=== PATIENT | female | born 1950 | race Caucasian/White ===

== ENCOUNTER 2023-08-23 11:12 | Outpatient (OUT) | payer OTHER, SELFPAY ==
--- NOTE | 2023-08-23 11:21 | MM_ITS ---
Patient: GISELE HEAD Exam Date: 08/23/2023 : 1950 Gender:F Ordering : DR FOREST SWAN M.D. Admission #: [id number] Family : Order #: [id number] CLICK HERE TO VIEW EXAM RADIOLOGY REPORT PROCEDURE: MM TOMOSYNTHESIS SCREENING BI COMPARISON: MAMMO WILMAR SCREEN, 04/06/2013. MAMMO WILMAR SCREEN, 06/15/2014. INDICATIONS: Screening Calculator Name NCI Breast Cancer Risk Assessment Tool 5 Year Breast Cancer Risk 1.70% Lifetime Breast Cancer Risk 4.50% Personal Breast Cancer No Personal Ovarian Cancer No Treatments None Family Cancers Daughter with melanoma cancer at age 45. LOCATION: [facility] BREAST COMPOSITION: Scattered areas fibroglandular density. FINDINGS: DIAGNOSTIC CATEGORY 1--NEGATIVE. NO CHANGE FROM COMPARISON ASSESSMENT. Scattered benign-appearing calcifications are present. Scattered benign-appearing lymph nodes are present. RIGHT BREAST: No significant suspicious finding. LEFT BREAST: No significant suspicious finding. RECOMMENDATIONS: ROUTINE MAMMOGRAM AND CLINICAL EVALUATION IN 12 MONTHS. PLEASE NOTE: A NORMAL MAMMOGRAM DOES NOT EXCLUDE THE POSSIBILITY OF BREAST CANCER. A CLINICALLY SUSPICIOUS PALPABLE LUMP SHOULD BE BIOPSIED. Dictated by: Kings Melgoza MD on 08/26/2023 at 08:06 Approved by: Kings Melgoza MD on 08/26/2023 at 08:07
== END 2023-08-23 11:13 | disposition home or self-care (01) ==
LOC: MAMMO 11:16
PROVIDERS: PCP Family Medicine; Visit Provider Family Medicine
DX: Z12.31 Encounter for screening mammogram for malignant neoplasm of breast (principal); Z85.820 Personal history of malignant melanoma of skin
CPT/HCPCS: 77063; 77067